=== PATIENT | female | born 1980 | race Caucasian/White ===

== ENCOUNTER 2017-02-16 18:34 | Emergency (ER) | payer OTHER ==
[~2017-02-16] VITALS: Ht 157.5 cm; Wt 65.5 kg
[2017-02-16 18:57] VITALS: Ht 157.5 cm; Wt 65.5 kg
[2017-02-16 21:05] LABS: ADD SCAN DIFF NO; BASOPHILS % 0.4 % (0.0-2.0); EOSINOPHILS # 0.1 10^3/ul (0.0-0.5); EOSINOPHILS % 1.9 % (0.0-7.0); HEMATOCRIT 41.2 % (37.0-47.0); HEMOGLOBIN 14.1 g/dl (12.0-16.0); LYMPHOCYTES # 3.2 10^3/ul (0.8-2.9); LYMPHOCYTES % 47.6 % (15.0-51.0); MEAN CORPUSCULAR HEMOGLOBIN 31.1 pg (29.0-33.0); MEAN CORPUSCULAR HGB CONC 34.2 g/dl (32.0-37.0); MEAN CORPUSCULAR VOLUME 90.7 fl (82.0-101.0); MEAN PLATELET VOLUME 10.3 fl (7.4-10.4); MONOCYTE # 0.5 10^3/ul (0.3-0.9); MONOCYTES % 6.9 % (0.0-11.0); NEUTROPHIL # 2.9 10^3/ul (1.6-7.5); NEUTROPHILS % 43.1 % (39.0-77.0); PLATELET COUNT 230 10^3/UL (140-415); RED BLOOD COUNT 4.54 10^6/ul (4.20-5.40); RED CELL DISTRIBUTION WIDTH 12.7 % (11.5-14.5); WHITE BLOOD COUNT 6.8 10^3/ul (4.8-10.8)
[2017-02-16 21:10] LABS: ADD UMIC YES; URINE BILIRUBIN (Dip) NEGATIVE (NEGATIVE); URINE BLOOD (Dip) 2+ (NEGATIVE); URINE COLOR LT. YELLOW (YELLOW); URINE GLUCOSE (Dip) NEGATIVE (NEGATIVE); URINE KETONES (Dip) NEGATIVE (NEGATIVE); URINE LEUKOCYTE ESTERASE (Dip) NEGATIVE (NEGATIVE); URINE NITRITE (Dip) NEGATIVE (NEGATIVE); URINE TOTAL PROTEIN (Dip) NEGATIVE (NEGATIVE); URINE UROBILINOGEN (Dip) 0.2 E.U./dL (0.1-1.0)
[2017-02-16 21:29] LABS: BACTERIA,URINE FEW; MUCUS,URINE MODERATE; SQUAMOUS EPITHELIAL CELL,UR FEW
--- NOTE | 2017-02-16 21:43 | RADRPT ---
PROCEDURE: US OB. CLINICAL INDICATION: . Vaginal bleeding. TECHNIQUE: Multiple sonographic images of the pelvis were obtained. Transabdominal and transvagin al views of the pelvis are available for review. The images were reviewed on a PACS workstation. COMPARISON: No prior studies are available for comparison. FINDINGS: Uterus is normal size at 8.5 x 4.5 x 5.3 cm. No intrauterine gestational sac, pole or heart m otion is identified. The endometrium is normal thickness and 7.9 mm. Uterus is otherwise unremarka ble. The ovaries are normal in size and echogenicity with normal vascular flow. Right ovary is 2 x 1.3 x 1.3 cm. Left ovary 2.3 x 1.2 x 1.5 cm. The adnexa are unremarkable. There is no adnexal mas s. There is no free fluid. IMPRESSION: No live intrauterine identified. Normal endometrium. Considerations include a missed abo rtion, early intrauterine and ectopic . No adnexal mass or free fluid to suggest ectopic although this cannot be excluded. RPTAT: [facility] .Cuba Benavidez MD, Date Time Electronically viewed and signed by .Cuba Benavidez MD, on 02/16/2017 21:43 .K/
--- NOTE | 2017-02-16 22:58 | ERD ---
ER Documentation Chief Complaint Date/Time DATE: 02/16/17 TIME: 22:56 Chief Complaint STARTED SPOTTING TODAY HPI Patient is a 36-year-old female who is . She states that today she found out she was via home test. She has a very light vaginal spotting that began today. She denies any abdominal pain or pain in general. Denies any nausea or vomiting. Denies any dysuria hematuria or increased urinary frequency. She does not she is today so she has not started taking vitamins yet or establish OB care. ROS All systems reviewed and are negative except as per history of present illness. PMhx/Soc Medical and Surgical Hx: pt denies Medical Hx, pt denies Surgical Hx Hx Alcohol Use: No Hx Substance Use: No Hx Tobacco Use: No Smoking Status: Never smoker FmHx Family History: No diabetes Physical Exam Vitals Vital Signs Date Time Temp Pulse Resp B/P Pulse Ox O2 Delivery O2 Flow Rate FiO2 02/16/17 18:57 98.1 59 16 142/77 98 Physical Exam General: well developed, well nourished, alert, nontoxic, no distress Head: normocephalic, atraumatic Neck: Supple, nontender, no lymphadenopathy, no midline tenderness Respiratory: Clear to auscaultation bilaterally, speaks in full sentences, no use of accesory muscles or labored breathing, no rales, ronchi, or wheezing Cardiovascular: RRR, No murmurs GI: soft, non tender, non distended, negative murphys sign, negative mcburneys point tenderness, no cva tenderness bilaterally, no rebound or guarding Back: no midline tenderness, no step offs or bony abnormalities, sensation to light touch in tact Result Diagram: 02/16/171944 Results 24 hrs Laboratory Tests Test 02/16/17 19:40 02/16/17 19:45 Urine Color LT. YELLOW Urine Clarity CLEAR Urine pH 5.5 Urine Specific [place] >=1.030 Urine Ketones NEGATIVE Urine Nitrite NEGATIVE Urine Bilirubin NEGATIVE Urine Urobilinogen 0.2 E.U./dL Urine Leukocyte Esterase NEGATIVE Urine Microscopic RBC 2-5/HPF Urine Microscopic WBC NONE SEEN/HPF Urine Squamous Epithelial Cells FEW Urine Bacteria FEW Urine Mucus MODERATE Urine Hemoglobin 2+ Urine Glucose NEGATIVE% Urine Total Protein NEGATIVE White Blood Count 6.810^3/ul Red Blood Count 4.5410^6/ul Hemoglobin 14.1g/dl Hematocrit 41.2% Mean Corpuscular Volume 90.7fl Mean Corpuscular Hemoglobin 31.1pg Mean Corpuscular Hemoglobin Concent 34.2g/dl Red Cell Distribution Width 12.7% Platelet Count 70553^3/UL Mean Platelet Volume 10.3fl Neutrophils % 43.1% Lymphocytes % 47.6% Monocytes % 6.9% Eosinophils % 1.9% Basophils % 0.4% Nucleated Red Blood Cells % 0.0/100WBC Neutrophils # 2.910^3/ul Lymphocytes # 3.210^3/ul Monocytes # 0.510^3/ul Eosinophils # 0.110^3/ul Basophils # 0.010^3/ul Nucleated Red Blood Cells # 0.010^3/ul Beta HCG, Quantitative 4.8mIU/ml Procedures/MDM This is a 36-year-old female who found out she is today. Her vital signs are normal other than very mildly elevated blood pressure 142/77. Her beta hCG today was 4.8 and furthermore the ultrasound did not show any intrauterine gestational . Although ectopic cannot be ruled out at this time I etc. were explained to the patient she needs to return in 24- 48 hours for follow-up ultrasound and beta hCG so we can try to determine whether she is or not . She was given copies of all of her labs and ultrasound reports she can follow with primary care and she will return for follow-up examination within the next 1-2 days. Recommended this patient follow up with her primary care doctor within 48 hours or return to the emergency room for any worsening of symptoms. However this time I do believe there is suitable for outpatient management. I answered all their questions and they agreed with the plan and were discharged home. Departure Diagnosis: Primary Impression: Threatened Condition: Stable LAMBERTO FREIRE PA-C Feb 16, 2017 22:58
[2017-02-16 23:42] VITALS: BP 125/83; PULSE 63; RESP 16; TEMP 98.2
== END 2017-02-16 23:44 | disposition home or self-care (01) ==
LOC: FTE 18:34
DX: O20.0 Threatened abortion (principal); Z3A.00 Weeks of gestation of pregnancy not specified
CPT/HCPCS: 36415; 76801; 76817; 81001; 84702; 85025; 86900; 86901; J2790; Z7502

== ENCOUNTER 2017-12-05 23:16 | Inpatient (IN) | END 2017-12-08 19:11 | disposition home or self-care (01) | DRG 775 ==